=== PATIENT | female | born 1975 | race Caucasian/White ===

== ENCOUNTER → 2021-06-26 | Outpatient (POV) | payer BC ==
[~2021-06-26] VITALS: Ht 160 cm; Wt 68.1 kg
[2021-06-26 14:30] VITALS: BP 143/92
--- NOTE | 2021-06-28 13:35 | IRCOV ---
[facility] IR Consult Office Visit IR Consult Office Visit DATE: Jun 26, 2021 REASON FOR CONSULTATION/CHIEF COMPLAINT: Veno lymphatic malformation. HISTORY OF PRESENT ILLNESS: 45-year-old female, with past medical history of hypertension, complaining of a swelling in the left hand first webspace. She describes this has been there for 1-1/2 years. It is not changing in size. She states sometimes with overuse of the hand, the area hurts. Otherwise no aggrava ting or relieving factors identified. No prior procedures in the left hand. Patient denies this being present in her teenage years or younger adulthood. No change in pain or lesion with illnesses or menstruation. No prior history of bleeding from this region. She states she has full function in the hand with no sensory loss or weakness. ALLERGIES: Please see below. HOME MEDICATIONS: Please see below. PAST MEDICAL HISTORY: Hypertension PAST SURGICAL HISTORY: None pertinent FAMILY HISTORY: None contributory. SOCIAL HISTORY: Nonsmoker. Denies alcohol or drugs. REVIEW OF SYSTEMS: Otherwise negative. PHYSICAL EXAMINATION: VITAL SIGNS: Please see below. GENERAL APPEARANCE: Appears well. Comfortable at rest. HEENT: No scleral icterus. RESPIRATORY: Normal breathing at rest. CARDIOVASCULAR: Normal rate. ABDOMEN: Non-distended. EXTREMITIES: Left hand palmar and dorsal first webspace, there is a soft, malleable, nonpulsatile swelling, which is nontender. No skin ulceration. The skin overlying the lesion appears dusky blue. Sensation in left hand is intact. Motor 5 out of 5. Normal radial pulse. NEUROLOGICAL: Alert and oriented. PSYCHIATRIC: Appropriate to circumstance. LABORATORY DATA: None available. Imaging: I personally performed a almodovar scale and color ultrasound of the left hand, targeted to the region of interest. There is a superficial, oval, elliptical mass, containing thin-walled cystic spaces, which are easily compressible. No hypervascularization, hyper arterialization, AV shunting or AV fistula. I personally reviewed the MRIs left hand performed 06/12/2021 without contrast. Mass in the first webspace of the left hand, appears heterogeneous and demonstrates T2 hyperintensity and STIR signal. On T1, there are streaks of hyperintensity, the bulk of the lesion is T1 isointense to skeletal muscle. ASSESSMENT/PLAN: 45-year-old female with non-pulsatile, soft, pliable lump in t he left hand first webspace, with overlying skin discoloration. Given the ultrasound findings, I think this veno lymphatic malformation may respond to sclerotherapy. We discussed the risks and benefits of the procedure and the patient is willing to proceed. We have scheduled the patient for sclerotherapy for left hand veno lymphatic malformation. I spent 30 minutes reviewing patient's records, imaging and in consultation with the patient. Thank you for this referral. Cc Dr. Montano VS, I&O, 24H, [facility] Vital Signs/I&O Vital Signs Date Time Temp Pulse Resp B/P (MAP) Pulse Ox O2 Delivery O2 Flow Rate FiO2 06/26/21 14:30 98.3 75 20 143/92 (109) 100 Room Air WILEY NUNEZ MD Jun 28, 2021 13:35
== END ==
LOC: M IRPOV 14:25
PROVIDERS: ATTEND Radiology Diagnostic Radiology
DX: R22.32 Localized swelling, mass and lump, left upper limb (principal); I10 Essential (primary) hypertension

== ENCOUNTER → 2021-07-30 | Outpatient (CLI) | payer BC ==
[~2021-07-30] MED LIST: AMLO1TAB24 PO; CHLO125TA PO; ESTA0.25 PO; FLON1SPR NARES; ISOVUE-300 61% 50ML VIAL As Ordered ONE; LIDOCAINE 1% MDV 20ML VIAL As Ordered ONE; MIDAZOLAM INJ 2MG/2ML VIAL (J2250 PER 1MG) As Ordered ONE; NS 1,000 ML IV SCH; ONDANSETRON 4MG/2ML VIAL As Ordered ONE; PERCOCET 5MG/325MG TAB As Ordered ONE; PERCOCET 5MG/325MG TAB PO PRN; SODIUM TETRADECYL SULFATE(3%)30MG/ML 2ML VIAL (SOTRADECOL) As Ordered ONE; birth control pill PO; diphenhydrAMINE 50MG/ML VIAL (J1200) As Ordered ONE; fentaNYL 100 MCG/2 ML INJECTION (J3010) As Ordered ONE
--- NOTE | 2021-07-30 10:58 | IRHP ---
[facility] IR Pre-Procedure H & P General Date of Service: Jul 30, 2021 Procedure: Same Day Surgery Interval History and Physical I have seen the patient and reviewed last H & P performed within 30 days. There is no significant interval change. History of Present Illness Chief Complaint The patient is a 46-year-old female admitted with a reason for visit of Pain And Mass Of Lt Hand. PRE-PROCEDURE DIAGNOSIS: Venous malformation HEART: Normal rate. LUNGS: Normal breathing at rest. ASA Classification ASA Classification: I-Healthy Mallampati Score: II NPO: Yes Problems with prior sedation: No Obstructive Sleep Apnea: No Plan moderate sedation Allergies Coded Allergies: No Known Drug Allergies (Verified Allergy, Unknown, 07/30/21) Home Medications Scheduled Amlodipine Besylate (Amlodipine Besylate), 5 MG PO DAILY, (Reported) Chlorthalidone (Chlorthalidone), 12.5 MG PO DAILY, (Reported) Fluticasone Propionate (Flonase Allergy Relief), 1 SPRAY NARES BID, (Reported) Norgestimate-Ethinyl Estradiol (Estarylla 0.25-0.035 mg Tablet), 1 TAB PO DAILY, (Reported) Discontinued Medications [ control pill], 1 TAB PO DAILY, (Reported) Discontinued Reason: Re-entering as new VS, I&O, 24H, Fishbone Vital Signs/I&O Vital Signs Date Time Temp Pulse Resp B/P (MAP) Pulse Ox O2 Delivery O2 Flow Rate FiO2 07/30/21 10:25 99.0 80 18 100 Room Air WILEY NUNEZ MD Jul 30, 2021 10:58
[2021-07-30 13:50] VITALS: BP 118/82
== END ==
LOC: M IRPRO 09:31
PROVIDERS: ATTEND Radiology Diagnostic Radiology
DX: Q27.31 Arteriovenous malformation of vessel of upper limb (principal); R22.32 Localized swelling, mass and lump, left upper limb; M79.642 Pain in left hand; Z79.899 Other long term (current) drug therapy
CPT/HCPCS: 36470; 76942; 99152; 99153; J1200; J2250; J2405; J3010; Q9967

== ENCOUNTER → 2021-08-07 | Outpatient (POV) | payer BC ==
--- NOTE | 2021-08-01 10:36 | IRPON ---
IR Postoperative Note Date Of Procedure: Jul 30, 2021 Time Of Procedure: 16:00 IR Postoperative Note IR Ultrasound and fluoroscopy guided sclerotherapy of left hand venous malformation. IR Ultrasound of the left hand. IR Moderate sedation. Clinical indication: Left hand venous malformation with pain and swelling. Physician: Dr. Diaz. Procedure: The patient was advised of the benefits, risks, and alternatives of the procedure and informed consent was obtained. A time-out was performed with verification of the patient's name, MRN, site of procedure and type of procedure to be performed. The patient was positioned in the supine position on the angiographic table. The site was prepped and draped in the usual sterile fashion. Moderate sedation was performed by the physician including the presence of an independent trained RN who assisted and monitored the patient's level of consciousness and physiologic status. Following the administration of fentanyl and Versed , the physician spent 45 minutes of continuous face to face time with the patient. Ultrasound of the left hand demonstrates left hand venous malformation, involving the dorsal and palmar aspect of the first webspace, consisting of hypoechoic dilated vascular spaces with low flow. A power distribution engineer radiograph reveals no gross abnormality. The vascular malformation was accessed under ultrasound guidance with a 26-gauge needle. Contrast was injected under fluoroscopy guidance which demonstrates the dilated vascular spaces. No communication with high flow arteries. No large systemic venous drainage. Under ultrasound guidance, the abnormal vascular spaces were accessed under continuous ultrasound guidance with a 26-gauge needle and injected with 3% Sotradecol. Intermittent injection and aspiration were performed to cover all the abnormal vascular spaces. All needles were removed, pressure held and a sterile dressing was applied to the site. The hand was examined post procedure and demonstrated swelling and tenderness as expected over the vascular anomaly. Full range of motor and sensory function in the hand is intact. Radial pulse intact. The patient tolerated the procedure well and was returned to the PRU in stable condition. Estimated blood loss: <5 ml. Complications: None. Conclusion: 1. Successful sclerotherapy of left hand venous malformation with Sotradecol. 2. Patient to follow up in IR clinic in 2 weeks. Thank you for this referral. WILEY DIAZ MD Aug 01, 2021 10:36
[~2021-08-07] VITALS: Ht 160 cm; Wt 70.4 kg
[~2021-08-07] MED LIST changes: -ISOVUE-300 61% 50ML VIAL As Ordered ONE; -LIDOCAINE 1% MDV 20ML VIAL As Ordered ONE; -MIDAZOLAM INJ 2MG/2ML VIAL (J2250 PER 1MG) As Ordered ONE; -NS 1,000 ML IV SCH; -ONDANSETRON 4MG/2ML VIAL As Ordered ONE; -PERCOCET 5MG/325MG TAB As Ordered ONE; -PERCOCET 5MG/325MG TAB PO PRN; -SODIUM TETRADECYL SULFATE(3%)30MG/ML 2ML VIAL (SOTRADECOL) As Ordered ONE; -diphenhydrAMINE 50MG/ML VIAL (J1200) As Ordered ONE; -fentaNYL 100 MCG/2 ML INJECTION (J3010) As Ordered ONE
[2021-08-07 08:35] VITALS: BP 141/89
--- NOTE | 2021-08-09 10:07 | IRPN ---
[facility] IR Progress Note IR Progress Note DATE: Aug 07, 2021 FOLLOW-UP: 2 weeks status post sclerotherapy of left hand venous malformation with Sotradecol. Patient states she experienced some burning immediately after the procedure but within a couple of days the pain went away. She has not noticed any numbness or weakness in the hand.. ON EXAMINATION: Left hand first webspace venous malformation post treatment. R esolution of overlying bruising. No skin breakdown. No ulceration. Motor and sensory function in the hand is intact. Strong radial pulse. IMPRESSION: Doing well status post sclerotherapy of left hand, first webspace venous malformation. No further intervention is indicated at present. If venous malformation again flares up with increased pain, swelling or decrease in hand function, she may need repeat sclerotherapy in the future. Thank you for this referral. CC Dr Montano. Allergies Coded Allergies: No Known Drug Allergies (Verified Allergy, Unknown, 07/30/21) VS,Fishbone, I+O VS, Fishbone, I+O Vital Signs Date Time Temp Pulse Resp B/P (MAP) Pulse Ox O2 Delivery O2 Flow Rate FiO2 08/07/21 08:35 98.8 66 20 141/89 (106) 99 Room Air WILEY NUNEZ MD Aug 09, 2021 10:07
== END ==
LOC: M IRPOV 08:30
PROVIDERS: ATTEND Radiology Diagnostic Radiology
DX: Z48.812 Encounter for surgical aftercare following surgery on the circulatory system (principal); Q27.31 Arteriovenous malformation of vessel of upper limb